=== PATIENT | female | born 1970 | race Caucasian/White ===

== ENCOUNTER 2021-07-16 10:05 | Outpatient (REF) | payer BC, SELFPAY ==
[2021-07-16 12:27] LABS: Alanine Aminotransferase 20 U/L (0-31); Albumin Level 4.4 g/dL (3.5-5.0); Alkaline Phosphatase 70 U/L (39-117); Anion Gap 12 (12-20); Aspartate Amino Transferase 15 U/L (5-31); Bilirubin Total 0.5 mg/dL (0.0-1.0); Blood Urea Nitrogen 11 mg/dL (9-16); Calcium 9.4 mg/dL (8.4-10.2); Carbon Dioxide 27 mmol/L (22-29); Chloride 106 mmol/L (96-108); Estimated Glomerular Filt Rate > 60; Glucose Random 110 mg/dL (60-115); Potassium 4.8 mmol/L (3.3-5.1); Sodium 140 mmol/L (135-145); Total Protein 7.7 g/dL (6.5-8.0)
== END 2021-07-16 10:06 | disposition home or self-care (01) ==
LOC: HO.WFDLDS 10:05
PROVIDERS: Visit Provider Hospitalist
DX: M25.511 Pain in right shoulder (principal)
CPT/HCPCS: 36415; 80053

== ENCOUNTER 2021-07-30 09:44 | Outpatient (REF) | payer BC, SELFPAY ==
[2021-07-30 11:43] LABS: Hematocrit 44.5 % (37.0-47.0); Hemoglobin 13.7 g/dl (12.0-16.0); Mean Corpuscular HGB Conc 30.8 g/dl (31.0-35.0); Mean Corpuscular Volume 87.8 fL (80.0-98.0); Mean Platelet Volume 11.1 fL (9.4-12.3); Platelet Count 263 X10*3/uL (160-400); Red Blood Count 5.07 X10*6/uL (4.20-5.50); Red Cell Distribution Width 12.7 % (11.0-16.0); White Blood Count 7.4 X10*3/uL (4.8-10.8)
[2021-07-30 12:17] LABS: TSH reflex Free T4 1.01 uIU/mL (0.32-4.0)
[2021-07-30 12:20] LABS: Alanine Aminotransferase 20 U/L (0-31); Albumin Level 4.5 g/dL (3.5-5.0); Alkaline Phosphatase 64 U/L (39-117); Anion Gap 11 (12-20); Aspartate Amino Transferase 15 U/L (5-31); Bilirubin Total 0.6 mg/dL (0.0-1.0); Blood Urea Nitrogen 17 mg/dL (9-16); Calcium 9.7 mg/dL (8.4-10.2); Carbon Dioxide 25 mmol/L (22-29); Chloride 106 mmol/L (96-108); Cholesterol 175 mg/dL; Estimated Glomerular Filt Rate > 60; Glucose Fasting 121 mg/dL (60-99); HDL Cholesterol 70 mg/dL; LDL Cholesterol Calculated 95 mg/dl; Sodium 137 mmol/L (135-145); Total Protein 7.8 g/dL (6.5-8.0); Triglycerides 54 mg/dL
== END 2021-07-30 09:45 | disposition home or self-care (01) ==
LOC: HO.WFDLDS 09:44
PROVIDERS: Visit Provider Hospitalist
DX: Z00.00 Encounter for general adult medical examination without abnormal findings (principal)
CPT/HCPCS: 36415; 80053; 80061; 84443; 85027

== ENCOUNTER 2024-03-02 09:57 | Outpatient (AMB) | payer BC, SELFPAY ==
--- NOTE | 2024-03-02 09:59 | A.OFFPC_ITS ---
Vital Signs 03/02/24 10:03 Height 5 ft 4 in Weight 201 lb BMI 34.5 BP 132/74 Blood Pressure Location Rt brachial Position Sitting Respiration 14 Pulse 92 Pulse Source Pulse Oximeter Pulse Oximetry (%) 96 Oxygen Delivery Method Room Air Intake Visit Reasons: saba from [place]/ skin cancer Intake Note: to establish care Allergies Penicillins Allergy (Unknown, Verified 03/02/24 10:35) Hives Medication List - Last Reconciled 03/02/24 by Sunshine Salgado ELEMENTARY SCIENCE TEACHER- miscellaneous medical supply (Blood Pressure Cuff) As directed for bp at least daily until stable Tobacco use date assessed: 03/02/24 Dental Screening Dental Screen Date: 03/02/24 Did you have a dental visit in the last 12 months?: No Did you have a dental problem in the last 6 months where you did not have access to dental care?: No Was dental information given to patient?: Patient has dentist HPI HPI Comments History of Present Illness Details 53-year-old female with HTN, family hist ory of breast cancer, unilateral renal agenesis, obesity, prediabetes, basal cell ca of left lower lid, cervical dysplasia s/p colpooscopy s/p breast augmentation implants, tubal ligation, lasix eye surgery , dental extractions 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 Colon has never had one, interested in cologaurd. Maternal grandfather w/ colon ca dx after age 50 ? Mammo never had one done ? DEXA n/a ? PAP active w/ LIBRARY TECHNOLOGY INSTRUCTOR ? Tdap given today, Flu/COVID 02/29/24 Specialists: Dr Félix Pryor Derm [employer]OLOGY IN[employer] [facility] Here today to est care & for a CPE. Old records available to me reviewed. New dx of basal cell ca of left lower eye lid. Will be undergoing MOHs in May 24 2024 ff'd by 2nd surgery in August 2024 She does have tearing of L eye. Wears glasses. Due for eye exam. Has a skin growth w/ bleeding to left buddhist/hairline has been there for years, does not think it has grown. It was removed in the past and grew back. Would like to fu with Derm. HTN was on lisinopril in the past; stopped taking some time ago. This was causing cough and sleep disruption. BP normal today w/o meds. Checks at home and at work and reports SBP < 140 Denies cardiac complaints Perimenopause managed by LIBRARY TECHNOLOGY INSTRUCTOR. Has routine fu scheduled Has never had a screening mammogram. She had bilateral breast implants placed at age 22. She thought at that time that she did not need any breast imaging. Discuss with her today that there is mammograms for women with implants. Given the family history of breast cancer strong recommendation to have a mammogram. Plan No need for meds for BP as it is at goal w/o meds. Refer to [facility] for skin lesion and skin surveillance Refer to Optho Mammo ordered today Cologaurd Tdap admin today EKG WNL Routine screening labs Labs from today show a normal CBC, normal electrolytes, normal renal function, fasting glucose 122, hemoglobin A1c 6.1%, normal iron profile, normal LFTs, normal lipid profile, normal TSH, slightly elevated urine microalbumin creatinine ratio however this is in a fasting state RTO first week of May for pre-op, sooner PRN This note is constructed using voice recognition software. While every effort has been made to ensure accuracy in optics test technician, still errors may have been included Sometimes, these errors may affect the content or meaning of the given sentence . Total time spent caring for the patient today was [] minutes. An additional 20 was spent addressing the problem(s) noted at todays visit. This includes time spent before the visit reviewing the chart, time spent during the visit, and time spent after the visit on documentation [facility] Medical History (Updated 03/02/24 @ 16:38 by [facility] Right shoulder pain Obesity Left shoulder pain Family History (Updated 03/02/24 @ 10:07 by Maranda Davis MA) Sister Substance abuse Social History (Updated 03/02/24 @ 10:07 by Maranda Davis MA) Household Members: Spouse Housing: House Are you a primary care manager cna to a significant other at home: No Do you presently have visiting nurse or other home services: No Alcohol intake: current Alcohol intake frequency: a few times a month Patient Tobacco Use Status: Never used Tobacco e-Cigarette/Vaping Use: Never Used Second Hand Smoke Exposure: No service: No Current occupational status: employed Current occupational exposures/hazards: No Cognitive needs: No Hearing needs: No Vision needs: No Questionnaire PHQ-9 Over the last 2 weeks, how often have you been bothered by any of the following problems? 1. Little interest or pleasure in doing things: not at all 2. Feeling down, depressed, or hopeless: not at all 3. Trouble falling or staying asleep, or sleeping too much: not at all 4. Feeling tired or having little energy: not at all 5. Poor appetite or overeating: not at all 6. Feeling bad about yourself - or that you are a failure or have let yourself or your family down: not at all 7. Trouble concentrating on things, such as reading the newspaper or watching television: not at all 8. Moving or speaking so slowly that other people could have noticed. Or the opposite - being so fidgety or restless that you have been moving around a lot more than usual: not at all 9. Thoughts that you would be better off or of hurting yourself in some way: not at all Total score: 0 Depression Screening Interpretation: Negative Depression Screening Done: Yes 84155 - PHQ-9 Billing: Yes Source: Developed by Drs. Dalton San, Jena Hung, Reji King and colleagues, with an educational elda from [employer]. Thrive Questionnaire Date Thrive assessed: 03/02/24 I am a: Patient What is your living situation today?: I have a steady place to live Within the past 12 months, did the food you bought not last and you didn't have the money to get more?: Never true Within the past 12 months, did you worry whether your food would run out before you got money to buy more?: Never true Do you have trouble paying for medicines?: No Do you have trouble getting transportation to medical appointments?: No Do you have trouble paying your heating and electricity bill?: No Do you have trouble taking care of your child, family member or friend?: No Do you have trouble with day-to-day activities such as bathing, preparing meals, shopping, managing finances, etc.?: No Are you currently unemployed and looking for a job?: No Are you interested in more education?: No Please select the resources that you would like help with: None Currently or been in a relationship where the following occur: No concerns reported THRIVE Score: 0 AUDIT C Alcohol Use Questionnaire (AUDIT-C) 1. How often do you have a drink containing alcohol?: 2-3 times a week 2. How many drinks containing alcohol do you have on a typical day when you are drinking?: 1 or 2 3. How often do you have six or more drinks on one occasion?: Never Total Score: 3 Score Reviewed/Action Taken: Yes KAYA-7 AMB Questionnaire KAYA-7 Date KAYA - 7 assessed: 03/02/24 Feeling nervous, anxious, or on edge: 0 = Not at all Not being able to stop or control worryin = Not at all Worrying too much about different things: 0 = Not at all Trouble relaxin = Not at all Being so restless that it is hard to sit still: 0 = Not at all Becoming easily annoyed or irritable: 0 = Not at all Feeling afraid as if something awful might happen: 0 = Not at all Total KYAA-7 score (0-4 normal; 5-9 mild; 10-14 moderate; 15-21 severe): 0 Source: Developed by Drs. Dalton San, Jena Hung, Reji King and colleagues, with an educational elda from [employer]. KAYA-7 Assessment Billing KAYA-7 Assessment Tool: KAYA-7 Assessment 67838 Review of Systems Const Details: Constitutional: Denies fever. Skin: Denies rash. Eye: Denies eye pain. ENMT: Denies sore throat and nasal congestion. Respiratory: Denies shortness of breath and cough. Gastrointestinal: Denies nausea, vomiting or abdominal pain. Cardiovascular: Denies chest pain and syncope. Genitourinary: Denies dysuria. Musculoskeletal: Denies back pain and extremity pain. Neurologic: Denies headaches, confusion, and weakness. Psychiatric: Denies suicidal thoughts and substance abuse. Allergy/ Immunologic: Denies impaired immunity. Physical exam (Primary Care) Vital Signs: Last Vital Signs Pulse 92 03/02/24 10:03 Resp 14 03/02/24 10:03 BP 132/74 03/02/24 10:03 Pulse Ox 96 03/02/24 10:03 Oxygen Delivery Method Room Air 03/02/24 10:03 BMI result Body Mass Index 34.5 BMI Assessment/Plan discussion: High BMI High, discussed plan: lifestyle Tobacco/Smoking Status: Tobacco use Status Tobacco use date assessed 03/02/24 03/02/24 10:09 Patient Tobacco Use Status Never used Tobacco 03/02/24 10:07 e-Cigarette/Vaping Use Never Used 03/02/24 10:07 PHQ-9: PHQ-9 Score PHQ-9: Total score 0 03/02/24 11:56 Depression Screening Interpretation: Negative Thrive Assessment: Date of Thrive Assessment Date Thrive assessed 03/02/24 03/02/24 10:01 Currently or been in a relationship where the following occur: No concerns reported Const Other: General: Well developed, well nourished, in no acute distress. Appears stated age. Head: Normocephalic, atraumatic. along hairline on the left is a raised pink warty skin lesion Eyes: Pupils are equal, round and reactive to light and accommodation. Conjunctivae are clear. lower lid with bcc w/ localized changes,tearing L eye Ears: TMs clear AU, EACS WNL Nose: Patent, without discharge. Mouth: There are no ulcers or lesions noted. No inflammation, no post nasal drip, no plaques nor exudates. Neck: Supple, no adenopathy or thyromegaly. Lungs: Clear to auscultation bilaterally. No rales, rhonchi or wheeze noted. Good air flow in all smith. Heart: Regular rate and rhythm. No murmurs, click, rubs or gallops are noted. Abdomen: Bowel sounds present in all quadrants. The abdomen is soft, nontender, with no masses or organomegaly noted. No hernias are noted. Musculoskeletal: Joints are nontender, without swelling, redness, or effusions. Range of motion is observed to be normal. Pulses: Peripheral pulses are equal and palpable bilaterally. Extremities: No clubbing, cyanosis nor edema is noted. Neurologic: Gait and station normal. Cranial Nerves 2-12 intact. Motor strength grossly symmetrical and intact. No sensory loss. Balance normal. Skin: No rashes, ulcers, or lesions noted. Turgor is good. Skin color is good. Hair and nails are without abnormalities. Psych: Normal eye contact, affect and mood appropriate, and normal interactions. Patient is alert and appropriate to context. Office Procedures EKG 59741-[id number], Complete Immunizations Boostrix Tdap 2.5 Lf unit-8 mcg-5 Lf/0.5 mL intramuscular syringe Performing Provider: JENNA Dickson Performing Location: [facility] Administered by: Reina Alva RN on 03/02/24 10:40 Dose Route Admin Location Dispensed Lot Number Expiration Date [place] Yarn Comber 0.5 mL IM Right Deltoid 0.5 mL [id number] 02/05/25 87770-154-99 [employer] VIS Given Date VIS Provided VIS Publication Date 03/02/24 Single Vaccine 20 Eligibility Eligibility Date Funding Source Not [facility] Eligible 03/02/24 Private Coding Level of Care Code Est Pt Level 3 (58089) Est Pt Prev Care 40-64y(91839) Diagnoses Encounter for general adult medical examination with abnormal findings Z00.01 BMI 34.0-34.9,adult Z68.34 Class 1 obesity due to excess calories with serious comorbidity and body mass index (BMI) of 34.0 to 34.9 in adult E66.811; E66.09; Z68.34 Obesity type: due to excess calories Serious obesity comorbidity presence: with serious comorbidity Family history of breast cancer gene mutation in first degree relative Z84.81 Unilateral renal agenesis Q60.0 Prediabetes R73.03 Primary hypertension I10 Hypertension type: primary hypertension Lesion of skin of face L98.9 Basal cell carcinoma (BCC) of skin of left lower eyelid including canthus C44.1192 Basal cell carcinoma location: face Basal cell carcinoma face location: eyelid including canthus Laterality: left Eyelid: lower Perimenopause N95.1 Perimenopausal menorrhagia N92.4 Blurry vision, bilateral H53.8 CPT Codes EKG - CPT: 90400-Clbrvfqsjbewrhoir, Complete ([id number]) Additional Codes KAYA-7 Assessment Billing - KAYA-7 Assessment Tool: KAYA-7 Assessment 86299 ([id number]) Assessment & Plan Assessment & Plan (1) Encounter for general adult medical examination with abnormal findings: Code(s): Z00.01 - Encounter for general adult medical examination with abnormal findings Plan: . (2) BMI 34.0-34.9,adult: Code(s): Z68.34 - Body mass index [BMI] 34.0-34.9, adult Category: Medical Plan: . (3) Class 1 obesity with body mass index (BMI) of 34.0 to 34.9 in adult: Comment: BMI > 34 with prediabetes Code(s): E66.811 - Obesity, class 1; Z68.34 - Body mass index [BMI] 34.0-34.9, adult Category: Medical Qualifiers: Obesity type: due to excess calories Serious obesity comorbidity presence: with serious comorbidity Qualified Code(s): E66.811 - Obesity, class 1; E66.09 - Other obesity due to excess calories; Z68.34 - Body mass index [BMI] 34.0-34.9, adult Plan: . (4) Family history of breast cancer gene mutation in first degree relative: Code(s): Z84.81 - Family history of carrier of genetic disease Category: Medical Plan: . (5) Unilateral renal agenesis: Code(s): Q60.0 - Renal agenesis, unilateral Category: Medical Plan: . (6) Prediabetes: Code(s): R73.03 - Prediabetes Category: Medical Plan: . (7) HTN (hypertension): Code(s): I10 - Essential (primary) hypertension Category: Medical Qualifiers: Hypertension type: primary hypertension Qualified Code(s): I10 - Essential (primary) hypertension Plan: . (8) Lesion of skin of face: Code(s): L98.9 - Disorder of the skin and subcutaneous tissue, unspecified Category: Medical Plan: . (9) Basal cell carcinoma: Code(s): C44.91 - Basal cell carcinoma of skin, unspecified Category: Medical Qualifiers: Basal cell carcinoma location: face Basal cell carcinoma face location: eyelid including canthus Laterality: left Eyelid: lower Qualified Code(s): C44.1192 - Basal cell carcinoma of skin of left lower eyelid, including canthus Plan: . (10) Perimenopause: Code(s): N95.1 - Menopausal and female climacteric states Category: Medical Plan: . (11) Perimenopausal menorrhagia: Code(s): N92.4 - Excessive bleeding in the premenopausal period Category: Medical Plan: . (12) Blurry vision, bilateral: Code(s): H53.8 - Other visual disturbances Category: Medical Plan: . Plan . Orders: Orders MM tomosynthesis screen imp Today Z12.31 - Encounter for screening mammogram for malignant neoplasm of breast Complete Blood Count no Diff Today I10 - Essential (primary) hypertension, N92.4 - Excessive bleeding in the premenopausal period, N95.1 - Menopausal and female climacteric states, Q60.0 - Renal agenesis, unilateral, R73.03 - Prediabetes Lipid Panel Today I10 - Essential (primary) hypertension, N92.4 - Excessive bleeding in the premenopausal period, N95.1 - Menopausal and female climacteric states, Q60.0 - Renal agenesis, unilateral, R73.03 - Prediabetes TSH reflex Free T4 Today I10 - Essential (primary) hypertension, N92.4 - Exces sive bleeding in the premenopausal period, N95.1 - Menopausal and female climacteric states, Q60.0 - Renal agenesis, unilateral, R73.03 - Prediabetes Ferritin Today I10 - Essential (primary) hypertension, N92.4 - Excessive bleeding in the premenopausal period, N95.1 - Menopausal and female climacteric states, Q60.0 - Renal agenesis, unilateral, R73.03 - Prediabetes AMB EKG-In Office Today Z13.6 - Encounter for screening for cardiovascular disorders Comprehensive [place]. Panel Fast Today I10 - Essential (primary) hypertension, N92.4 - Excessive bleeding in the premenopausal period, N95.1 - Menopausal and female climacteric states, Q60.0 - Renal agenesis, unilateral, R73.03 - Prediabetes Hemoglobin A1c Today I10 - Essential (primary) hypertension, N92.4 - Excessive bleeding in the premenopausal period, N95.1 - Menopausal and female climacteric states, Q60.0 - Renal agenesis, unilateral, R73.03 - Prediabetes IRON PROFILE Today I10 - Essential (primary) hypertension, N92.4 - Excessive bleeding in the premenopausal period, N95.1 - Menopausal and female climacteric states, Q60.0 - Renal agenesis, unilateral, R73.03 - Prediabetes Microalbumin, Random (w Creat) Today I10 - Essential (primary) hypertension, N92.4 - Excessive bleeding in the premenopausal period, N95.1 - Menopausal and female climacteric states, Q60.0 - Renal agenesis, unilateral, R73.03 - Prediabetes TDaP Immunization Today Z23 - Encounter for immunization Referrals Dermatology Referral C44.91 - Basal cell carcinoma of skin, unspecified, L98.9 - Disorder of the skin and subcutaneous tissue, unspecified Cologuard Test Z12.11 - Encounter for screening for malignant neoplasm of colon, Z12.12 - Encounter for screening for malignant neoplasm of rectum Ophthalmology Referral H53.8 - Other visual disturbances
[2024-03-02 10:03] VITALS: BP 132/74; PULSE 92; RESP 14; O2SAT 96; BMI 34.5
== END 2024-03-02 10:57 | disposition home or self-care (01) ==
PROVIDERS: PCP Nurse Practitioner Family; Visit Provider Nurse Practitioner Family
DX: Z00.00 Encounter for general adult medical examination without abnormal findings (principal); R73.03 Prediabetes; Z68.34 Body mass index [BMI] 34.0-34.9, adult; E66.811 Obesity, class 1; N95.1 Menopausal and female climacteric states; I10 Essential (primary) hypertension; N92.4 Excessive bleeding in the premenopausal period; Z84.81 Family history of carrier of genetic disease; Q60.0 Renal agenesis, unilateral; C44.1192 Basal cell carcinoma of skin of left lower eyelid, including canthus; L98.9 Disorder of the skin and subcutaneous tissue, unspecified; H53.8 Other visual disturbances

== ENCOUNTER → 2024-03-02 09:57 | Outpatient (BNVA) | payer BC, SELFPAY | PROVIDERS: PCP Nurse Practitioner Family; Visit Provider Nurse Practitioner Family | DX: Z00.01 Encounter for general adult medical examination with abnormal findings (principal); C44.1192 Basal cell carcinoma of skin of left lower eyelid, including canthus; E66.811 Obesity, class 1; Z68.34 Body mass index [BMI] 34.0-34.9, adult; R73.03 Prediabetes; I10 Essential (primary) hypertension; Z23 Encounter for immunization; L98.9 Disorder of the skin and subcutaneous tissue, unspecified; N92.4 Excessive bleeding in the premenopausal period; H53.8 Other visual disturbances; Q60.0 Renal agenesis, unilateral; Z84.81 Family history of carrier of genetic disease | CPT/HCPCS: 90471; 90715; 93005; 96127 ==

== ENCOUNTER 2024-03-02 11:11 | Outpatient (REF) | payer BC, SELFPAY ==
[2024-03-02 14:34] LABS: Hemoglobin 14.1 g/dl (12.0-16.0); Mean Corpuscular HGB Conc 31.3 g/dl (31.0-35.0); Mean Corpuscular Volume 82.9 fL (80.0-98.0); Platelet Count 261 X10*3/uL (160-400); Red Blood Count 5.43 X10*6/uL (4.20-5.50); Red Cell Distribution Width 13.8 % (11.0-16.0); White Blood Count 7.6 X10*3/uL (4.8-10.8)
[2024-03-02 14:39] LABS: Estimated Average Glucose 128 mg/dL; Hemoglobin A1C 150.3649 umol/L; Hemoglobin A1c % 6.1 % (<6.0); Total Hemoglobin (HGBA1C) 3459.7119 umol/L
[2024-03-02 14:59] LABS: Alanine Aminotransferase 23 U/L (0-31); Albumin Level 4.3 g/dL (3.5-5.0); Alkaline Phosphatase 80 U/L (39-117); Anion Gap 13 (12-20); Aspartate Amino Transferase 20 U/L (5-31); Bilirubin Total 0.7 mg/dL (0.0-1.0); Blood Urea Nitrogen 12 mg/dL (9-16); Calcium 9.7 mg/dL (8.4-10.2); Carbon Dioxide 26 mmol/L (22-29); Chloride 106 mmol/L (96-108); Cholesterol 195 mg/dL (<200); Estimated Glomerular Filt Rate > 60; Glucose Fasting 122 mg/dL (60-99); HDL Cholesterol 70 mg/dL (>40); Iron 58 mcg/dL (30-160); LDL Cholesterol Calculated 106 mg/dL (<100); Percent Iron Saturation 18 % (15-50); Potassium 4.5 mmol/L (3.3-5.1); Sodium 140 mmol/L (135-145); Total Iron Binding Capacity 329 mcg/dL (228-428); Total Protein 7.9 g/dL (6.5-8.0); Triglycerides 99 mg/dL (<150); Unsaturated Iron Binding 271 ug/dL
[2024-03-02 15:09] LABS: Creatinine Urine 139.39 mg/dL
[2024-03-02 15:15] LABS: Ferritin 31 ng/mL (10-250)
== END 2024-03-02 11:12 | disposition home or self-care (01) ==
LOC: HO.WFDLDS 11:11
PROVIDERS: Visit Provider Nurse Practitioner Family
DX: Q60.0 Renal agenesis, unilateral (principal); I10 Essential (primary) hypertension; R73.03 Prediabetes; N92.4 Excessive bleeding in the premenopausal period
CPT/HCPCS: 36415; 80053; 80061; 82043; 82570; 82728; 83036; 83540; 84443; 85027

== ENCOUNTER 2024-04-20 11:25 | Outpatient (REF) | payer BC, SELFPAY | END 2024-04-20 11:26 | disposition home or self-care (01) | LOC: HO.MAMMO 11:25 | PROVIDERS: PCP Nurse Practitioner Family; Visit Provider Nurse Practitioner Family | DX: Z12.31 Encounter for screening mammogram for malignant neoplasm of breast (principal) | CPT/HCPCS: 77063; 77067 ==

== ENCOUNTER → 2024-04-20 11:45 | Outpatient (BNV) | payer BC, SELFPAY | PROVIDERS: PCP Nurse Practitioner Family; Visit Provider Internal Medicine | DX: Z12.31 Encounter for screening mammogram for malignant neoplasm of breast (principal) | CPT/HCPCS: 77063; 77067 ==

== ENCOUNTER 2024-05-13 12:17 | Outpatient (AMB) | payer BC, SELFPAY ==
--- NOTE | 2024-05-13 12:20 | A.OFFPC_ITS ---
Vital Signs 05/13/24 12:23 Height 5 ft 4 in Weight 203 lb 8 oz BMI 34.9 BP 134/72 Blood Pressure Location Lt brachial Position Sitting Respiration 12 Pulse 63 Pulse Source Pulse Oximeter Pulse Oximetry (%) 98 Oxygen Delivery Method Room Air Intake Visit Reasons: early May Preop 30 min Intake Note: pre op visit Credit Intern Required: No Allergies Penicillins Allergy (Unknown, Verified 05/13/24 12:38) Hives Medication List - Last Reconciled 05/13/24 by ABBE Dickson- miscellaneous medical supply (Blood Pressure Cuff) As directed for bp at least daily until stable Tobacco use date assessed: 03/02/24 Dental Screening Dental Screen Date: 03/02/24 HPI HPI Comments History of Present Illness Details 53-year-old female with HTN, family hist ory of breast cancer, unilateral renal agenesis, obesity, prediabetes, basal cell ca of left lower lid, cervical dysplasia s/p colpooscopy s/p breast augmentation implants, tubal ligation, lasix eye surgery , dental extractions Social: [employer], living at home w/ and 1 adult dtr Health Maintenance: ? Colon has never had one, interested in cologaurd. Maternal grandfather w/ colon ca dx after age 50; cologaurd ordered 02/2024 ? Mammo 04/2024 WNL repeat 1 year ? DEXA n/a ? PAP active w/ GAS ANALYST ? Tdap 02/2024, Flu/COVID 02/29/24 Specialists: Dr Félix Pryor Derm GAS ANALYST [facility] 03/04/24 exam WNL return [address] Snyder Here today for preoperative clearance. Surgery Type: The patient is scheduled for Mohs surgery to reconstruct the left lower eyelid with accompanying probing and irrigation of the nasal lacrimal duct of the left eye, and an excisional biopsy of the left upper eyelid neoplasm. Anesthesia Type: General Surgeon: Dr Félix Pryor Date:05/24/24 Any past surgical procedures: yes see above Any complications from anesthesia or in post-op period: denies ASA or NSAID Use: none Current smoker: no Alcohol use: drinks a few times per week Drug use: no METs: > 4 climb flight of stairs, golf, walk, yardwork Medical history: Asthma no COPD no Obesity BMI 34.9 Diabetes no The patient is a 53-year-old female presenting for pre-operative examination related to basal cell carcinoma. The carcinoma is located on the left lower eyelid and there is a concurrent neoplasm on the left upper eyelid. The patient is scheduled for Mohs surgery to reconstruct the left lower eyelid with accompanying probing and irrigation of the nasal lacrimal duct of the left eye, and an excisional biopsy of the left upper eyelid neoplasm. The surgical date is set for the of the , and the procedure will be performed under general anesthesia. She has a history of breast augmentation, tubal ligation, and dental extractions, none of which posed difficulties with anesthesia. She denies any recent issues with anesthesia, postoperative vomiting, or difficulty waking post-surgery. The patient's recent EKG was performed within six months and was noted to be normal, as were all necessary laboratory tests. Exam General: Well developed, well nourished, in no acute distress. Appears stated age. Head: Normocephalic, atraumatic. along hairline on the left is a raised pink warty skin lesion Eyes: Pupils are equal, round and reactive to light and accommodation. Conjunctivae are clear. lower lid with bcc w/ localized changes,tearing L eye Ears: TMs clear AU, EACS WNL Nose: Patent, without discharge. Mouth: There are no ulcers or lesions noted. No inflammation, no post nasal drip, no plaques nor exudates. Neck: Supple, no adenopathy or thyromegaly. Lungs: Clear to auscultation bilaterally. No rales, rhonchi or wheeze noted. Good air flow in all smith. Heart: Regular rate and rhythm. No murmurs, click, rubs or gallops are noted. Abdomen: Bowel sounds present in all quadrants. The abdomen is soft, nontender, with no masses or organomegaly noted. No hernias are noted. Musculoskeletal: Joints are nontender, without swelling, redness, or effusions. Range of motion is observed to be normal. Pulses: Peripheral pulses are equal and palpable bilaterally. Extremities: No clubbing, cyanosis nor edema is noted. Neurologic: Gait and station normal. Cranial Nerves 2-12 intact. Motor strength grossly symmetrical and intact. No sensory loss. Balance normal. Skin: No rashes, ulcers, or lesions noted. Turgor is good. Skin color is good. Hair and nails are without abnormalities. Psych: Normal eye contact, affect and mood appropriate, and normal interactions. Patient is alert and appropriate to context. Results - EKG normal 03/02/24 - Labs from 03/02/24 show a normal CBC, normal electrolytes, normal renal function, fasting glucose 122, hemoglobin A1c 6.1%, normal iron profile, normal LFTs, normal lipid profile, normal TSH, slightly elevated urine microalbumin creatinine ratio however this is in a fasting state Patient was informed and verbally consented to the use of an ambient scribe for clinic note documentation during this visit. Patient Instructions - Abstain from aspirin and ibuprofen sev en days before surgery to minimize bleeding risk. - Avoid smoking and limit alcohol consum ption preoperatively as advised. - Contact surgery team, specifically Merlyn monae, with [facility] paperwork completion needs. - Attend postoperative follow-up appoint ment as scheduled. - Alert for any abnormal symptoms or com plications post-surgery, including excessive bleeding. - Arrange annual physical for February any necessary dermatology follow-up. - Keep hydrated and maintain a moderate, well-balanced diet leading up to surgery. Patient is medically cleared for surgery. This note is constructed using voice recognition software. While every effort has been made to ensure accuracy in food and nutrition professor, still errors may have been in cluded Sometimes, these errors may affect the content or meaning of the given sentence . Total time spent caring for the patient today was 40 minutes. This includes time spent before the visit reviewing the chart, time spent during the visit, and time spent after the visit on documentation [facility] Medical History (Updated 03/02/24 @ 16:38 by Sunshine Salgado [facility]) Right shoulder pain Obesity Left shoulder pain Family History (Updated 03/02/24 @ 10:07 by Maranda Davis MA) Sister Substance abuse Social History (Updated 03/02/24 @ 10:07 by Maranda Davis MA) Household Members: Spouse Both parents involved: No Caregiver staying overnight: No Housing: House Are you a primary personal care aide to a significant other at home: No Do you presently have visiting nurse or other home services: No 75 years or older and lives alone: No Alcohol intake: current Alcohol intake frequency: a few times a month Patient Tobacco Use Status: Never used Tobacco e-Cigarette/Vaping Use: Never Used Second Hand Smoke Exposure: No service: No Current occupational status: employed Current occupational exposures/hazards: No Cognitive needs: No Hearing needs: No Vision needs: No Questionnaire PHQ-9 Over the last 2 weeks, how often have you been bothered by any of the following problems? 1. Little interest or pleasure in doing things: not at all 2. Feeling down, depressed, or hopeless: not at all 3. Trouble falling or staying asleep, or sleeping too much: not at all 4. Feeling tired or having little energy: not at all 5. Poor appetite or overeating: not at all 6. Feeling bad about yourself - or that you are a failure or have let yourself or your family down: not at all 7. Trouble concentrating on things, such as reading the newspaper or watching television: not at all 8. Moving or speaking so slowly that other people could have noticed. Or the opposite - being so fidgety or restless that you have been moving around a lot more than usual: not at all 9. Thoughts that you would be better off or of hurting yourself in some way: not at all Total score: 0 20733 - PHQ-9 Billing: Yes Source: Developed by Drs. Dalton San, Jena Hung, Reji King and colleagues, with an educational elda from [employer]. Thrive Questionnaire Date Thrive assessed: 05/13/24 I am a: Patient What is your living situation today?: I have a steady place to live Within the past 12 months, did the food you bought not last and you didn't have the money to get more?: Never true Within the past 12 months, did you worry whether your food would run out before you got money to buy more?: Never true Do you have trouble paying for medicines?: No Do you have trouble getting transportation to medical appointments?: No Do you have trouble paying your heating and electricity bill?: No Do you have trouble taking care of your child, family member or friend?: No Do you have trouble with day-to-day activities such as bathing, preparing meals, shopping, managing finances, etc.?: No Are you currently unemployed and looking for a job?: No Are you interested in more education?: No Please select the resources that you would like help with: None Currently or been in a relationship where the following occur: No concerns reported THRIVE Score: 0 AUDIT C Alcohol Use Questionnaire (AUDIT-C) 1. How often do you have a drink containing alcohol?: 2-3 times a week 2. How many drinks containing alcohol do you have on a typical day when you are drinking?: 1 or 2 3. How often do you have six or more drinks on one occasion?: Never Total Score: 3 KAYA-7 AMB Questionnaire KAYA-7 Date KAYA - 7 assessed: 05/13/24 Feeling nervous, anxious, or on edge: 0 = Not at all Not being able to stop or control worryin = Not at all Worrying too much about different things: 0 = Not at all Trouble relaxin = Not at all Being so restless that it is hard to sit still: 0 = Not at all Becoming easily annoyed or irritable: 0 = Not at all Feeling afraid as if something awful might happen: 0 = Not at all Total KAYA-7 score (0-4 normal; 5-9 mild; 10-14 moderate; 15-21 severe): 0 Source: Developed by Drs. Dalton San, Jena Hung, Reji King and colleagues, with an educational elda from [employer]. KAYA-7 Assessment Billing KAYA-7 Assessment Tool: KAYA-7 Assessment 52956 Physical exam (Primary Care) Vital Signs: Last Vital Signs Pulse 63 05/13/24 12:23 Resp 12 05/13/24 12:23 BP 134/72 05/13/24 12:23 Pulse Ox 98 05/13/24 12:23 Oxygen Delivery Method Room Air 05/13/24 12:23 BMI result Body Mass Index 34.9 Tobacco/Smoking Status: Tobacco use Status Tobacco use date assessed 03/02/24 05/13/24 12:25 Patient Tobacco Use Status Never used Tobacco 05/13/24 12:25 e-Cigarette/Vaping Use Never Used 05/13/24 12:25 PHQ-9: PHQ-9 Score PHQ-9: Total score 0 05/13/24 12:25 Thrive Assessment: Date of Thrive Assessment Date Thrive assessed 05/13/24 05/13/24 12:25 Currently or been in a relationship where the following occur: No concerns reported Coding Level of Care Code Est Pt Level 5 (99841) Complex EM visit Add On G2211 Diagnoses Pre-op exam Z01.818 Additional Codes KAYA-7 Assessment Billing - KAYA-7 Assessment Tool: KAYA-7 Assessment 63019 ([id number]) PHQ-9 - 27792 - PHQ-9 Billing: Yes ([id number]) Assessment & Plan Assessment & Plan (1) Pre-op exam: Code(s): Z01.818 - Encounter for other preprocedural examination Plan .
[2024-05-13 12:23] VITALS: BP 134/72; PULSE 63; RESP 12; O2SAT 98; BMI 34.9
== END 2024-05-13 16:41 | disposition home or self-care (01) ==
PROVIDERS: PCP Nurse Practitioner Family; Visit Provider Nurse Practitioner Family
DX: Z01.818 Encounter for other preprocedural examination (principal)

== ENCOUNTER → 2024-05-13 12:17 | Outpatient (BNVA) | payer BC, SELFPAY | PROVIDERS: PCP Nurse Practitioner Family; Visit Provider Nurse Practitioner Family | DX: Z01.818 Encounter for other preprocedural examination (principal) | CPT/HCPCS: 96127 ==